=== PATIENT | male | born 1955 ===

== ENCOUNTER 2024-05-14 13:44 | Inpatient (IN) | payer MEDICARE, MEDICAID ==
[~2024-05-14] VITALS: Ht 175.3 cm; Wt 75.7 kg
[2024-05-14 14:00] VITALS: BP 153/83; PULSE 75; RESP 18; TEMP 97.5; O2SAT 100
[2024-05-14] MEDS ORDERED: DEXTROSE 50%-WATER 25 GM/50 ML SYRINGE IVP PRN (15:15)
[2024-05-14] MEDS ORDERED: LEVALBUTEROL TARTRATE HFA 45 MCG/PUFF 15 GM INHALER IH PRN (15:15)
[2024-05-14] MEDS ORDERED: OxyCODONE HCL 5 MG IR TABLET PO PRN (15:30)
[2024-05-14] MEDS ORDERED: *PATIENT'S OWN MED [ENTER DRUG, DOSE, FREQUENCY IN COMMENTS] CLINICAL ONE (15:45)
[2024-05-14] MEDS: GABAPENTIN 300 MG CAPSULE PO SCH (17:03)
[2024-05-14 17:45] LABS: GLUCOMETER DEV NAME(LOC) 2WR.1D; GLUCOSE,POINT OF CARE 109 MG/DL (70-110)
[2024-05-14] MEDS: INFLUENZA VIRUS VACCINE TVS (6MO+) 2024-25/PF 45 MCG/0.5 ML SYRINGE IM. ONE (19:10)
[2024-05-14] MEDS ORDERED: LATANOPROST 0.005% 2.5 ML OPHTHALMIC SOLUTION OU SCH (21:00)
[2024-05-14] MEDS: [UNRECOGNIZED DRUG - OTHER] IH SCH (21:00)
[2024-05-14] MEDS ORDERED: SACUBITRIL/VALSARTAN 49-51 MG TABLET PO SCH (21:00)
[2024-05-14] MEDS ORDERED: TRIAMCINOLONE 0.1% 15 GM OINTMENT TP SCH (21:00)
[2024-05-14] MEDS: FLUTICASONE PROPIONATE IH SCH (21:00)
[2024-05-14 21:10] VITALS: BP 112/59; PULSE 75; RESP 18; TEMP 97.5; O2SAT 100
[2024-05-14] MEDS: MUPIROCIN CALCIUM 2% 15 GM CREAM TP SCH (21:17)
[2024-05-14] MEDS: AMMONIUM LACTATE 12% 225 GM LOTION TP SCH (21:18)
[2024-05-14] MEDS: CHOLECALCIFEROL (VIT D3) 2,000 UNITS [50 MCG] TABLET PO SCH (21:19)
[2024-05-14] MEDS: TRIAMCINOLONE 0.1% 15 GM CREAM TP SCH (21:20)
[2024-05-14] MEDS: MELATONIN 3 MG TABLET PO PRN (21:20)
[2024-05-14] MEDS: SACUBITRIL/VALSARTAN 49-51 MG TABLET PO SCH (21:21)
[2024-05-14] MEDS: ETHYL ALCOHOL 62% ANTISEPTIC NASAL SANITIZER 0.6 ML AMPUL NASAL SCH (22:15)
[2024-05-14] MEDS: INSULIN LISPRO 100 UNITS/ML SQ PRN (22:16)
[2024-05-14 22:57] LABS: APPEARANCE,URINE CLEAR (CLEAR); BILIRUBIN,URINE NEGATIVE (NEGATIVE); COLOR,URINE YELLOW (YELLOW); GLUCOSE, URINE (UA) NEGATIVE (NEGATIVE); KETONES,URINE TRACE mg/dL (NEGATIVE); LEUKOCYTE ESTERASE ,URINE MODERATE (NEGATIVE); NITRATE,URINE NEGATIVE (NEGATIVE); OCCULT BLOOD,URINE TRACE (NEGATIVE); PH,URINE 5.5 (5.0-8.0); PROTEIN,URINE 30-70 mg/dL (NEGATIVE); UROBILINOGEN,URINE <=1.0 mg/dL (<=1.0)
[2024-05-14 23:24] LABS: BACTERIA,URINE Few /HPF (None Seen); HYALINE CASTS, URINE 0-2 /LPF (None Seen); MUCUS,URINE Few LPF (None Seen); SQUAMOUS EPITHELIAL CELL,UR Few /LPF (None Seen)
[2024-05-15 02:06] VITALS: O2SAT 100
[2024-05-15 04:11] LABS: GLUCOMETER DEV NAME(LOC) 2WR.2B; GLUCOSE,POINT OF CARE 175 MG/DL (70-110)
[2024-05-15 06:51] LABS: GLUCOMETER DEV NAME(LOC) 2WR.1D; GLUCOSE,POINT OF CARE 112 MG/DL (70-110)
[2024-05-15 07:51] LABS: BASOPHILS % (AUTO) 0.9 % (0.0-2.0); EOSINOPHILS % (AUTO) 5.4 % (1.0-6.0); HEMOGLOBIN 8.6 g/dL (13.5-17.5); LYMPHOCYTES # (AUTO) 1.4 K/uL (1.0-4.8); LYMPHOCYTES % (AUTO) 25.7 % (22.0-44.0); MEAN CORPUSCULAR HEMOGLOBIN 29.6 pg (26.0-34.0); MEAN CORPUSCULAR HGB CONC 32.9 G/dL (31.0-37.0); MEAN CORPUSCULAR VOLUME 90 fL (80-100); MONOCYTES # (AUTO) 0.4 K/uL (0.1-1.0); MONOCYTES % (AUTO) 7.5 % (2.0-9.0); NEUTROPHILS # (AUTO) 3.2 K/uL (1.8-7.7); NEUTROPHILS % (AUTO) 60.5 % (40.0-70.0); PLATELET COUNT (AUTO) 420 K/uL (150-450); RED BLOOD CELL COUNT(AUTO) 2.89 MIL/uL (4.50-5.90); RED CELL DISTRIBUTION WIDTH 14.3 % (11.5-14.5); WHITE BLOOD COUNT (AUTO) 5.3 K/uL (4.5-11.0)
[2024-05-15 08:10] VITALS: BP 108/61; PULSE 82; RESP 18; TEMP 97.6; O2SAT 100
[2024-05-15 08:11] LABS: ALBUMIN 2.1 g/dL (3.4-5.0); BILIRUBIN,TOTAL 0.2 mg/dL (0.1-1.0); CALCIUM, TOTAL 8.1 mg/dL (8.8-10.5); CREATININE 1.27 mg/dL (0.60-1.30); POTASSIUM 4.7 mmol/L (3.5-5.1); TOTAL PROTEIN, SERUM 5.9 g/dL (6.4-8.2)
[2024-05-15] MEDS: LORATADINE 10 MG TABLET PO SCH (08:31)
[2024-05-15] MEDS: CLOPIDOGREL BISULFATE 75 MG TABLET PO SCH (08:32)
[2024-05-15] MEDS: TAMSULOSIN HCL 0.4 MG CAPSULE PO SCH ×2 (08:32→21:03)
[2024-05-15] MEDS: LATANOPROST 0.005% 2.5 ML OPHTHALMIC SOLUTION OU SCH ×2 (08:35→21:05)
[2024-05-15] MEDS: PrednisoLONE ACETATE 1% 5 ML OPHTHALMIC SUSPENSION OU SCH (08:36)
[2024-05-15] MEDS ORDERED: LORATADINE 10 MG TABLET PO SCH (09:00)
[2024-05-15] MEDS: MULTIVITAMINS WITH MINERALS, THERAPEUTIC TABLET PO SCH (10:33)
[2024-05-15 11:17] VITALS: O2SAT 100
[2024-05-15] MEDS: NITROFURANTOIN MONOHYD/M-CRYST 100 MG CAPSULE [MACROBID] PO SCH (11:29)
[2024-05-15 12:36] LABS: GLUCOMETER DEV NAME(LOC) 2WR.1D; GLUCOSE,POINT OF CARE 127 MG/DL (70-110)
[2024-05-15 18:01] LABS: GLUCOMETER DEV NAME(LOC) 2WR.2B; GLUCOSE,POINT OF CARE 97 MG/DL (70-110)
[2024-05-15 21:00] VITALS: BP 116/64; PULSE 73; RESP 18; TEMP 97.7; O2SAT 100
[2024-05-15 22:31] LABS: GLUCOMETER DEV NAME(LOC) 2WR.2B; GLUCOSE,POINT OF CARE 200 MG/DL (70-110)
[2024-05-16] MEDS: ACETAMINOPHEN 325 MG TABLET PO PRN (02:02)
[2024-05-16 02:48] VITALS: O2SAT 100
[2024-05-16 07:21] LABS: GLUCOMETER DEV NAME(LOC) 2WR.2B; GLUCOSE,POINT OF CARE 97 MG/DL (70-110)
[2024-05-16 08:00] VITALS: BP 116/63; PULSE 72; RESP 18; TEMP 97.4; O2SAT 100
[2024-05-16] MEDS: MUPIROCIN CALCIUM 2% 22 GM OINTMENT NASAL SCH (09:35)
[2024-05-16] MEDS: LORATADINE 10 MG TABLET PO SCH (09:37)
[2024-05-16] MEDS: ENOXAPARIN SODIUM 40 MG/0.4 ML PF SYRINGE SQ SCH (09:39)
[2024-05-16 13:20] LABS: GLUCOMETER DEV NAME(LOC) 2WR.2B; GLUCOSE,POINT OF CARE 122 MG/DL (70-110)
[2024-05-16 18:26] LABS: GLUCOMETER DEV NAME(LOC) 2WR.2B; GLUCOSE,POINT OF CARE 171 MG/DL (70-110)
[2024-05-16 20:00] VITALS: BP 118/59; PULSE 82; RESP 18; TEMP 97.5; O2SAT 100
[2024-05-17 00:01] LABS: GLUCOMETER DEV NAME(LOC) 2WR.2B; GLUCOSE,POINT OF CARE 216 MG/DL (70-110)
[2024-05-17 04:06] VITALS: TEMP 97.6
[2024-05-17] MEDS: LEVALBUTEROL TARTRATE HFA 45 MCG/PUFF 15 GM INHALER IH PRN (04:06)
[2024-05-17 06:57] LABS: BASOPHILS % (AUTO) 0.7 % (0.0-2.0); EOSINOPHILS % (AUTO) 3.3 % (1.0-6.0); HEMATOCRIT 26.3 % (41-53); HEMOGLOBIN 8.7 g/dL (13.5-17.5); LYMPHOCYTES # (AUTO) 1.3 K/uL (1.0-4.8); LYMPHOCYTES % (AUTO) 27.7 % (22.0-44.0); MEAN CORPUSCULAR HEMOGLOBIN 29.5 pg (26.0-34.0); MEAN CORPUSCULAR VOLUME 89 fL (80-100); MONOCYTES # (AUTO) 0.4 K/uL (0.1-1.0); MONOCYTES % (AUTO) 8.3 % (2.0-9.0); NEUTROPHILS # (AUTO) 2.9 K/uL (1.8-7.7); PLATELET COUNT (AUTO) 449 K/uL (150-450); RED BLOOD CELL COUNT(AUTO) 2.95 MIL/uL (4.50-5.90); RED CELL DISTRIBUTION WIDTH 14.3 % (11.5-14.5); WHITE BLOOD COUNT (AUTO) 4.8 K/uL (4.5-11.0)
[2024-05-17 07:05] LABS: GLUCOMETER DEV NAME(LOC) 2WR.1D; GLUCOSE,POINT OF CARE 175 MG/DL (70-110)
[2024-05-17 07:13] LABS: ALBUMIN 2.3 g/dL (3.4-5.0); BILIRUBIN,TOTAL 0.2 mg/dL (0.1-1.0); CALCIUM, TOTAL 8.4 mg/dL (8.8-10.5); CREATININE 1.48 mg/dL (0.60-1.30); POTASSIUM 4.8 mmol/L (3.5-5.1); TOTAL PROTEIN, SERUM 6.2 g/dL (6.4-8.2)
[2024-05-17 08:00] VITALS: BP 111/58; PULSE 71; RESP 18; TEMP 98; O2SAT 100
[2024-05-17] MEDS: TRULICITY 1.5 MG/0.5 ML SQ SCH (08:33)
[2024-05-17] MEDS: TRIAMCINOLONE 0.1% 15 GM OINTMENT TP SCH (08:34)
[2024-05-17] MEDS ORDERED: TRIAMCINOLONE 0.1% 15 GM CREAM TP SCH (09:00)
[2024-05-17 13:16] LABS: GLUCOMETER DEV NAME(LOC) 2WR.2B; GLUCOSE,POINT OF CARE 94 MG/DL (70-110)
[2024-05-17 17:56] LABS: GLUCOMETER DEV NAME(LOC) 2WR.1D; GLUCOSE,POINT OF CARE 106 MG/DL (70-110)
[2024-05-17 20:02] VITALS: BP 126/64; PULSE 85; RESP 18; TEMP 98; O2SAT 97
[2024-05-17 21:57] VITALS: O2SAT 97
[2024-05-17 22:06] LABS: GLUCOMETER DEV NAME(LOC) 2WR.1D; GLUCOSE,POINT OF CARE 216 MG/DL (70-110)
[2024-05-17 22:08] LABS: GLUCOMETER DEV NAME(LOC) 2WR.1D; GLUCOSE,POINT OF CARE 216 MG/DL (70-110)
[2024-05-18 07:21] LABS: GLUCOMETER DEV NAME(LOC) 2WR.1D; GLUCOSE,POINT OF CARE 112 MG/DL (70-110)
[2024-05-18 08:00] VITALS: BP 106/56; PULSE 73; RESP 18; TEMP 98.1; O2SAT 100
[2024-05-18 12:46] LABS: GLUCOMETER DEV NAME(LOC) 2WR.2B; GLUCOSE,POINT OF CARE 130 MG/DL (70-110)
[2024-05-18] MEDS ORDERED: HEPARIN SODIUM,PORCINE 5,000 UNITS/ML VIAL SQ SCH (16:00)
[2024-05-18 18:01] LABS: GLUCOMETER DEV NAME(LOC) 2WR.1D; GLUCOSE,POINT OF CARE 170 MG/DL (70-110)
[2024-05-18 20:10] VITALS: BP 140/78; PULSE 75; RESP 18; TEMP 98.2; O2SAT 100
[2024-05-18] MEDS: SENNOSIDES 8.6 MG TABLET PO SCH (21:39)
[2024-05-18] MEDS: DOCUSATE SODIUM 250 MG CAPSULE PO SCH (21:39)
[2024-05-18 22:00] VITALS: O2SAT 100
[2024-05-18] MEDS: HEPARIN SODIUM,PORCINE 5,000 UNITS/ML VIAL SQ SCH (23:14)
[2024-05-19 00:51] LABS: GLUCOMETER DEV NAME(LOC) 2WR.2B; GLUCOSE,POINT OF CARE 170 MG/DL (70-110)
[2024-05-19 07:10] LABS: GLUCOMETER DEV NAME(LOC) 2WR.1D; GLUCOSE,POINT OF CARE 160 MG/DL (70-110)
[2024-05-19 08:00] VITALS: BP 122/61; PULSE 74; RESP 18; TEMP 98.2; O2SAT 100
[2024-05-19 13:31] LABS: GLUCOMETER DEV NAME(LOC) 2WR.2B; GLUCOSE,POINT OF CARE 141 MG/DL (70-110)
[2024-05-19 18:41] LABS: GLUCOMETER DEV NAME(LOC) 2WR.1D; GLUCOSE,POINT OF CARE 147 MG/DL (70-110)
[2024-05-19 19:43] VITALS: BP 124/65; PULSE 90; RESP 18; TEMP 98; O2SAT 97
[2024-05-19 20:00] VITALS: BP 147/77; PULSE 82; RESP 18; TEMP 97.4; O2SAT 100
[2024-05-19 21:25] LABS: GLUCOMETER DEV NAME(LOC) 2WR.1D; GLUCOSE,POINT OF CARE 145 MG/DL (70-110)
[2024-05-20 07:01] LABS: GLUCOMETER DEV NAME(LOC) 2WR.2B; GLUCOSE,POINT OF CARE 176 MG/DL (70-110)
[2024-05-20 08:00] VITALS: BP 131/66; PULSE 79; RESP 18; TEMP 97.9; O2SAT 100
[2024-05-20 12:05] LABS: GLUCOMETER DEV NAME(LOC) 2WR.1D; GLUCOSE,POINT OF CARE 247 MG/DL (70-110)
[2024-05-20 16:41] LABS: GLUCOMETER DEV NAME(LOC) 2WR.2B; GLUCOSE,POINT OF CARE 196 MG/DL (70-110)
[2024-05-20 20:00] VITALS: BP 119/64; PULSE 89; RESP 18; TEMP 97.9; O2SAT 99
[2024-05-20 23:56] VITALS: O2SAT 99
[2024-05-21 02:30] LABS: GLUCOMETER DEV NAME(LOC) 2WR.1D; GLUCOSE,POINT OF CARE 192 MG/DL (70-110)
[2024-05-21 05:06] VITALS: BP 106/60; PULSE 86; RESP 18; O2SAT 98
[2024-05-21 08:00] VITALS: BP 112/62; PULSE 81; RESP 18; TEMP 98.2; O2SAT 100
[2024-05-21] MEDS: AQUAPHOR OINTMENT 50 GM TUBE TP SCH (09:05)
[2024-05-21 10:26] LABS: GLUCOMETER DEV NAME(LOC) 2WR.1D; GLUCOSE,POINT OF CARE 186 MG/DL (70-110)
[2024-05-21 10:26] LABS: GLUCOMETER DEV NAME(LOC) 2WR.1D; GLUCOSE,POINT OF CARE 229 MG/DL (70-110)
[2024-05-21 14:21] LABS: GLUCOMETER DEV NAME(LOC) 2WR.1D; GLUCOSE,POINT OF CARE 180 MG/DL (70-110)
[2024-05-21 17:41] LABS: GLUCOMETER DEV NAME(LOC) 2WR.1D; GLUCOSE,POINT OF CARE 131 MG/DL (70-110)
[2024-05-21 20:00] VITALS: BP 137/65; PULSE 84; RESP 18; TEMP 97.7; O2SAT 100
[2024-05-21 23:16] LABS: GLUCOMETER DEV NAME(LOC) 2WR.1D; GLUCOSE,POINT OF CARE 309 MG/DL (70-110)
[2024-05-22 06:56] LABS: GLUCOMETER DEV NAME(LOC) 2WR.2B; GLUCOSE,POINT OF CARE 223 MG/DL (70-110)
[2024-05-22 08:00] VITALS: BP 134/67; PULSE 82; RESP 19; TEMP 99.3; O2SAT 98
[2024-05-22 11:21] VITALS: BP 132/75; PULSE 91; RESP 18; TEMP 98.8; O2SAT 100
[2024-05-22 11:46] LABS: GLUCOMETER DEV NAME(LOC) 2WR.2B; GLUCOSE,POINT OF CARE 137 MG/DL (70-110)
[2024-05-22 17:10] LABS: GLUCOMETER DEV NAME(LOC) 2WR.1D; GLUCOSE,POINT OF CARE 131 MG/DL (70-110)
[2024-05-22 18:12] LABS: APPEARANCE,URINE CLEAR (CLEAR); BILIRUBIN,URINE NEGATIVE (NEGATIVE); COLOR,URINE LIGHT YELLOW (YELLOW); GLUCOSE, URINE (UA) NEGATIVE (NEGATIVE); KETONES,URINE NEGATIVE (NEGATIVE); LEUKOCYTE ESTERASE ,URINE LARGE (NEGATIVE); NITRATE,URINE POSITIVE (NEGATIVE); OCCULT BLOOD,URINE SMALL (NEGATIVE); PH,URINE 6.5 (5.0-8.0); PROTEIN,URINE TRACE mg/dL (NEGATIVE); SPECIFIC GRAVITIY, URINE 1.013 (1.003-1.030); UROBILINOGEN,URINE <=1.0 mg/dL (<=1.0)
[2024-05-22 19:00] LABS: BACTERIA,URINE Rare /HPF (None Seen); WBC,URINE 26-50 /HPF (0-5)
[2024-05-22 20:30] VITALS: BP 139/61; PULSE 97; RESP 18; TEMP 98.5; O2SAT 100
[2024-05-22 21:06] VITALS: O2SAT 100
[2024-05-23 02:16] LABS: GLUCOMETER DEV NAME(LOC) 2WR.1D; GLUCOSE,POINT OF CARE 110 MG/DL (70-110)
[2024-05-23 07:26] LABS: GLUCOMETER DEV NAME(LOC) 2WR.2B; GLUCOSE,POINT OF CARE 108 MG/DL (70-110)
[2024-05-23 07:53] LABS: BASOPHILS % (AUTO) 0.4 % (0.0-2.0); EOSINOPHILS % (AUTO) 0 % (1.0-6.0); HEMATOCRIT 26.1 % (41-53); HEMOGLOBIN 8.5 g/dL (13.5-17.5); LYMPHOCYTES # (AUTO) 1.5 K/uL (1.0-4.8); MEAN CORPUSCULAR HEMOGLOBIN 28.8 pg (26.0-34.0); MEAN CORPUSCULAR HGB CONC 32.4 G/dL (31.0-37.0); MEAN CORPUSCULAR VOLUME 89 fL (80-100); MONOCYTES # (AUTO) 1.7 K/uL (0.1-1.0); MONOCYTES % (AUTO) 7.6 % (2.0-9.0); NEUTROPHILS # (AUTO) 18.6 K/uL (1.8-7.7); PLATELET COUNT (AUTO) 364 K/uL (150-450); RED BLOOD CELL COUNT(AUTO) 2.94 MIL/uL (4.50-5.90); RED CELL DISTRIBUTION WIDTH 14.5 % (11.5-14.5); WHITE BLOOD COUNT (AUTO) 21.9 K/uL (4.5-11.0)
[2024-05-23] MEDS: SitaGLIPtin PHOSPHATE 25 MG TABLET PO SCH (07:59)
[2024-05-23 08:05] VITALS: BP 116/64; PULSE 85; RESP 18; TEMP 98.4; O2SAT 98
[2024-05-23 08:19] LABS: ALBUMIN 2.1 g/dL (3.4-5.0); BILIRUBIN,TOTAL 0.4 mg/dL (0.1-1.0); CALCIUM, TOTAL 8.3 mg/dL (8.8-10.5); CREATININE 1.61 mg/dL (0.60-1.30); POTASSIUM 4.7 mmol/L (3.5-5.1)
[2024-05-23 10:49] VITALS: O2SAT 98
[2024-05-23 11:51] LABS: GLUCOMETER DEV NAME(LOC) 2WR.2B; GLUCOSE,POINT OF CARE 240 MG/DL (70-110)
[2024-05-23] MEDS: SODIUM CHLORIDE 0.9% 1,000 ML IV SCH (12:23)
[2024-05-23] MEDS: CefTRIAXone 1 GM/DEXTROSE 50 ML IV SCH (12:27)
[2024-05-23 12:44] LABS: LACTIC ACID 0.9 mmol/L (0.4-2.0)
[2024-05-23 13:21] LABS: GLUCOMETER DEV NAME(LOC) 2WR.2B; GLUCOSE,POINT OF CARE 147 MG/DL (70-110)
[2024-05-23 13:55] VITALS: BP 127/68; PULSE 81; RESP 19; TEMP 98.2; O2SAT 100
[2024-05-23 17:10] LABS: GLUCOMETER DEV NAME(LOC) 2WR.1D; GLUCOSE,POINT OF CARE 86 MG/DL (70-110)
[2024-05-23 20:00] VITALS: BP 113/65; PULSE 85; RESP 18; TEMP 99.9; O2SAT 99
[2024-05-23 21:55] LABS: GLUCOMETER DEV NAME(LOC) 2WR.1D; GLUCOSE,POINT OF CARE 167 MG/DL (70-110)
[2024-05-24] MEDS: CefTRIAXone 1 GM/DEXTROSE 50 ML IV SCH (02:03)
[2024-05-24 06:05] VITALS: TEMP 99.2
[2024-05-24 06:06] VITALS: TEMP 99.2
[2024-05-24 06:45] LABS: GLUCOMETER DEV NAME(LOC) 2WR.2B; GLUCOSE,POINT OF CARE 98 MG/DL (70-110)
[2024-05-24 07:08] LABS: BASOPHILS % (AUTO) 0.2 % (0.0-2.0); EOSINOPHILS % (AUTO) 0.1 % (1.0-6.0); HEMATOCRIT 24.8 % (41-53); LYMPHOCYTES # (AUTO) 1.6 K/uL (1.0-4.8); LYMPHOCYTES % (AUTO) 8.2 % (22.0-44.0); MEAN CORPUSCULAR HEMOGLOBIN 28.6 pg (26.0-34.0); MEAN CORPUSCULAR HGB CONC 32.3 G/dL (31.0-37.0); MEAN CORPUSCULAR VOLUME 89 fL (80-100); MONOCYTES # (AUTO) 1.5 K/uL (0.1-1.0); MONOCYTES % (AUTO) 7.6 % (2.0-9.0); NEUTROPHILS # (AUTO) 16.4 K/uL (1.8-7.7); NEUTROPHILS % (AUTO) 83.9 % (40.0-70.0); PLATELET COUNT (AUTO) 322 K/uL (150-450); RED BLOOD CELL COUNT(AUTO) 2.81 MIL/uL (4.50-5.90); RED CELL DISTRIBUTION WIDTH 14.5 % (11.5-14.5); WHITE BLOOD COUNT (AUTO) 19.6 K/uL (4.5-11.0)
[2024-05-24 07:27] LABS: CALCIUM, TOTAL 8.1 mg/dL (8.8-10.5); CREATININE 1.58 mg/dL (0.60-1.30); POTASSIUM 4.1 mmol/L (3.5-5.1)
[2024-05-24 08:20] VITALS: BP 97/52; PULSE 73; RESP 16; TEMP 99.2; O2SAT 100
[2024-05-24] MEDS: SODIUM CHLORIDE 0.9% 1,000 ML IV ONE (10:15)
[2024-05-24] MEDS: *CLINICAL-LEVOFLOXACIN ORAL DOSING CLINICAL ONE (13:26)
[2024-05-24 14:11] LABS: GLUCOMETER DEV NAME(LOC) 2WR.1D; GLUCOSE,POINT OF CARE 203 MG/DL (70-110)
[2024-05-24 14:17] VITALS: O2SAT 100
[2024-05-24] MEDS: LEVOFLOXACIN 750 MG/D5% WATER 150 ML IV SCH (15:10)
[2024-05-24 17:41] LABS: GLUCOMETER DEV NAME(LOC) 2WR.2B; GLUCOSE,POINT OF CARE 139 MG/DL (70-110)
[2024-05-24 20:30] VITALS: O2SAT 98
[2024-05-24 20:32] VITALS: BP 121/67; PULSE 84; RESP 18; TEMP 97.9; O2SAT 98
[2024-05-25 00:06] LABS: GLUCOMETER DEV NAME(LOC) 2WR.2B; GLUCOSE,POINT OF CARE 214 MG/DL (70-110)
[2024-05-25 06:50] LABS: GLUCOMETER DEV NAME(LOC) 2WR.1D; GLUCOSE,POINT OF CARE 155 MG/DL (70-110)
[2024-05-25 08:00] VITALS: BP 109/56; PULSE 74; RESP 18; TEMP 98.4; O2SAT 99
[2024-05-25] MEDS: 0.9% SODIUM CHLORIDE 10 ML SYRINGE IVP SCH (08:10)
[2024-05-25 08:21] LABS: BASOPHILS % (AUTO) 0.4 % (0.0-2.0); EOSINOPHILS % (AUTO) 1.3 % (1.0-6.0); HEMATOCRIT 26.9 % (41-53); HEMOGLOBIN 8.8 g/dL (13.5-17.5); LYMPHOCYTES % (AUTO) 7.7 % (22.0-44.0); MEAN CORPUSCULAR HEMOGLOBIN 28.7 pg (26.0-34.0); MEAN CORPUSCULAR HGB CONC 32.6 G/dL (31.0-37.0); MEAN CORPUSCULAR VOLUME 88 fL (80-100); MONOCYTES # (AUTO) 0.8 K/uL (0.1-1.0); MONOCYTES % (AUTO) 6.6 % (2.0-9.0); NEUTROPHILS # (AUTO) 10.5 K/uL (1.8-7.7); PLATELET COUNT (AUTO) 341 K/uL (150-450); RED BLOOD CELL COUNT(AUTO) 3.05 MIL/uL (4.50-5.90); RED CELL DISTRIBUTION WIDTH 14.7 % (11.5-14.5); WHITE BLOOD COUNT (AUTO) 12.5 K/uL (4.5-11.0)
[2024-05-25 08:35] LABS: CALCIUM, TOTAL 8.1 mg/dL (8.8-10.5); CREATININE 2.04 mg/dL (0.60-1.30); POTASSIUM 4.3 mmol/L (3.5-5.1)
[2024-05-25] MEDS: SODIUM CHLORIDE 0.9% 1,000 ML IV SCH (10:45)
[2024-05-25 12:11] LABS: GLUCOMETER DEV NAME(LOC) 2WR.2B; GLUCOSE,POINT OF CARE 175 MG/DL (70-110)
[2024-05-25 17:31] LABS: GLUCOMETER DEV NAME(LOC) 2WR.1D; GLUCOSE,POINT OF CARE 100 MG/DL (70-110)
[2024-05-25 20:00] VITALS: BP 128/73; PULSE 92; RESP 20; TEMP 98.2; O2SAT 100
[2024-05-25 21:55] LABS: GLUCOMETER DEV NAME(LOC) 2WR.2B; GLUCOSE,POINT OF CARE 262 MG/DL (70-110)
[2024-05-26 06:41] LABS: % IRON SATURATION 18.8 % (30-44)
[2024-05-26 06:42] LABS: CREATININE 1.7 mg/dL (0.60-1.30); POTASSIUM 4.5 mmol/L (3.5-5.1)
[2024-05-26 07:05] LABS: GLUCOMETER DEV NAME(LOC) 2WR.1D; GLUCOSE,POINT OF CARE 154 MG/DL (70-110)
[2024-05-26 08:00] VITALS: BP 114/60; PULSE 73; RESP 18; TEMP 98.5; O2SAT 100
[2024-05-26] MEDS ORDERED: LACTULOSE 20 GM/30 ML SOLUTION UDCUP PO PRN (09:45)
[2024-05-26 10:21] VITALS: O2SAT 100
[2024-05-26 12:56] LABS: GLUCOMETER DEV NAME(LOC) 2WR.2B; GLUCOSE,POINT OF CARE 137 MG/DL (70-110)
[2024-05-26] MEDS: GABAPENTIN 300 MG CAPSULE PO SCH (16:21)
[2024-05-26 18:00] LABS: GLUCOMETER DEV NAME(LOC) 2WR.2B; GLUCOSE,POINT OF CARE 162 MG/DL (70-110)
[2024-05-26 21:00] VITALS: BP 134/80; PULSE 82; RESP 18; TEMP 97.7; O2SAT 97
[2024-05-26 22:16] LABS: GLUCOMETER DEV NAME(LOC) 2WR.1D; GLUCOSE,POINT OF CARE 158 MG/DL (70-110)
[2024-05-27 00:05] VITALS: O2SAT 97
[2024-05-27 06:36] LABS: GLUCOMETER DEV NAME(LOC) 2WR.2B; GLUCOSE,POINT OF CARE 161 MG/DL (70-110)
[2024-05-27 07:45] LABS: CALCIUM, TOTAL 8.2 mg/dL (8.8-10.5); CREATININE 1.65 mg/dL (0.60-1.30); POTASSIUM 4.8 mmol/L (3.5-5.1)
[2024-05-27 07:48] LABS: MAGNESIUM 2.2 mg/dL (1.80-2.40); PHOSPHORUS 2.4 mg/dL (2.5-4.9)
[2024-05-27 08:05] VITALS: BP 127/68; PULSE 74; RESP 18; TEMP 98.2; O2SAT 98
[2024-05-27 10:25] VITALS: O2SAT 98
[2024-05-27] MEDS: EPOETIN ALFA 10,000 UNITS/ML VIAL SQ ONE (12:04)
[2024-05-27 12:26] LABS: GLUCOMETER DEV NAME(LOC) 2WR.2B; GLUCOSE,POINT OF CARE 146 MG/DL (70-110)
[2024-05-27 12:30] VITALS: BP 132/64; PULSE 80; RESP 18; TEMP 98.6; O2SAT 99
[2024-05-27] MEDS: SODIUM CHLORIDE 0.9% 1,000 ML IV SCH (13:19)
[2024-05-27 18:06] LABS: GLUCOMETER DEV NAME(LOC) 2WR.1D; GLUCOSE,POINT OF CARE 172 MG/DL (70-110)
[2024-05-27 20:30] VITALS: BP 132/75; PULSE 82; RESP 18; TEMP 98.1; O2SAT 100
[2024-05-27 22:05] LABS: GLUCOMETER DEV NAME(LOC) 2WR.2B; GLUCOSE,POINT OF CARE 126 MG/DL (70-110)
[2024-05-28 02:14] VITALS: O2SAT 100
[2024-05-28 07:10] LABS: GLUCOMETER DEV NAME(LOC) 2WR.1D; GLUCOSE,POINT OF CARE 149 MG/DL (70-110)
[2024-05-28] MEDS ORDERED: SACU1TAB7 PO (07:54)
[2024-05-28] MEDS ORDERED: DOCU-412 PO (07:54)
[2024-05-28] MEDS ORDERED: FLUT10.67 IH (07:54)
[2024-05-28] MEDS ORDERED: CLOP75TA60 PO (07:54)
[2024-05-28] MEDS ORDERED: GABA-1181 PO (07:54)
[2024-05-28] MEDS ORDERED: SENN-376 PO (07:54)
[2024-05-28] MEDS ORDERED: LORA10TA7 PO (07:54)
[2024-05-28] MEDS ORDERED: SITA25 PO (07:54)
[2024-05-28] MEDS ORDERED: MULT-1303 PO (07:54)
[2024-05-28] MEDS ORDERED: DULA1.5P SQ (07:54)
[2024-05-28] MEDS ORDERED: TAMS0.4C94 PO (07:54)
[2024-05-28] MEDS ORDERED: PREDAOS OU (07:54)
[2024-05-28] MEDS ORDERED: CHOL25TA4 PO (07:54)
[2024-05-28] MEDS ORDERED: EVOL140P3 SQ (07:54)
[2024-05-28] MEDS ORDERED: XALA2.5OS OU (07:54)
[2024-05-28] MEDS ORDERED: INSU100V SQ (07:54)
[2024-05-28 08:00] VITALS: BP 132/66; PULSE 77; RESP 18; TEMP 98.1; O2SAT 98
[2024-05-28] MEDS: EVOLOCUMAB 140 MG/ML SQ SCH (08:39)
[2024-05-28 15:26] LABS: GLUCOMETER DEV NAME(LOC) 2WR.1D; GLUCOSE,POINT OF CARE 122 MG/DL (70-110)
[2024-05-28 18:21] LABS: GLUCOMETER DEV NAME(LOC) 2WR.1D; GLUCOSE,POINT OF CARE 222 MG/DL (70-110)
[2024-05-28 20:00] VITALS: BP 145/78; PULSE 85; RESP 20; TEMP 98; O2SAT 100
[2024-05-28 21:36] LABS: GLUCOMETER DEV NAME(LOC) 2WR.2B; GLUCOSE,POINT OF CARE 153 MG/DL (70-110)
[2024-05-29 06:25] LABS: BASOPHILS % (AUTO) 0.7 % (0.0-2.0); EOSINOPHILS % (AUTO) 3.2 % (1.0-6.0); HEMATOCRIT 25.8 % (41-53); HEMOGLOBIN 8.4 g/dL (13.5-17.5); LYMPHOCYTES # (AUTO) 1.9 K/uL (1.0-4.8); LYMPHOCYTES % (AUTO) 24.6 % (22.0-44.0); MEAN CORPUSCULAR HEMOGLOBIN 28.6 pg (26.0-34.0); MEAN CORPUSCULAR HGB CONC 32.6 G/dL (31.0-37.0); MEAN CORPUSCULAR VOLUME 88 fL (80-100); MONOCYTES # (AUTO) 0.7 K/uL (0.1-1.0); MONOCYTES % (AUTO) 8.7 % (2.0-9.0); NEUTROPHILS # (AUTO) 4.8 K/uL (1.8-7.7); NEUTROPHILS % (AUTO) 62.8 % (40.0-70.0); PLATELET COUNT (AUTO) 344 K/uL (150-450); RED BLOOD CELL COUNT(AUTO) 2.95 MIL/uL (4.50-5.90); RED CELL DISTRIBUTION WIDTH 14.7 % (11.5-14.5); WHITE BLOOD COUNT (AUTO) 7.7 K/uL (4.5-11.0)
[2024-05-29 07:11] LABS: GLUCOMETER DEV NAME(LOC) 2WR.1D; GLUCOSE,POINT OF CARE 168 MG/DL (70-110)
[2024-05-29 07:37] LABS: CALCIUM, TOTAL 8.1 mg/dL (8.8-10.5); CREATININE 1.37 mg/dL (0.60-1.30); PHOSPHORUS 2.6 mg/dL (2.5-4.9); POTASSIUM 4.8 mmol/L (3.5-5.1)
[2024-05-29 08:10] VITALS: BP 145/78; PULSE 85; RESP 18; TEMP 97.8; O2SAT 98
[2024-05-29 09:31] VITALS: O2SAT 98
[2024-05-29 12:20] LABS: GLUCOMETER DEV NAME(LOC) 2WR.1D; GLUCOSE,POINT OF CARE 170 MG/DL (70-110)
[2024-05-29 17:16] LABS: GLUCOMETER DEV NAME(LOC) 2WR.1D; GLUCOSE,POINT OF CARE 140 MG/DL (70-110)
[2024-05-29 20:30] VITALS: BP 148/81; PULSE 91; RESP 19; TEMP 98.2; O2SAT 99
[2024-05-29 22:26] LABS: GLUCOMETER DEV NAME(LOC) 2WR.1D; GLUCOSE,POINT OF CARE 167 MG/DL (70-110)
[2024-05-30 00:34] VITALS: O2SAT 99
[2024-05-30 06:35] LABS: GLUCOMETER DEV NAME(LOC) 2WR.1D; GLUCOSE,POINT OF CARE 179 MG/DL (70-110)
[2024-05-30 08:20] VITALS: BP 131/61; PULSE 75; RESP 18; TEMP 98.4; O2SAT 100
[2024-05-30 10:40] VITALS: O2SAT 100
[2024-05-30 12:30] LABS: GLUCOMETER DEV NAME(LOC) 2WR.1D; GLUCOSE,POINT OF CARE 159 MG/DL (70-110)
[2024-05-30 17:30] LABS: GLUCOMETER DEV NAME(LOC) 2WR.2B; GLUCOSE,POINT OF CARE 128 MG/DL (70-110)
[2024-05-30 20:00] VITALS: BP 148/83; PULSE 86; RESP 18; TEMP 98.1; O2SAT 98
[2024-05-30 21:48] VITALS: O2SAT 98
[2024-05-31 00:41] LABS: GLUCOMETER DEV NAME(LOC) 2WR.2B; GLUCOSE,POINT OF CARE 132 MG/DL (70-110)
[2024-05-31 06:26] LABS: GLUCOMETER DEV NAME(LOC) 2WR.2B; GLUCOSE,POINT OF CARE 193 MG/DL (70-110)
[2024-05-31 08:00] VITALS: BP 121/65; PULSE 75; RESP 18; TEMP 98.2; O2SAT 99
[2024-05-31 13:15] LABS: GLUCOMETER DEV NAME(LOC) 2WR.2B; GLUCOSE,POINT OF CARE 96 MG/DL (70-110)
[2024-05-31 18:21] LABS: GLUCOMETER DEV NAME(LOC) 2WR.2B; GLUCOSE,POINT OF CARE 141 MG/DL (70-110)
[2024-05-31 20:05] VITALS: BP 130/77; PULSE 85; RESP 18; TEMP 98.2; O2SAT 96
[2024-05-31 21:20] LABS: GLUCOMETER DEV NAME(LOC) 2WR.1D; GLUCOSE,POINT OF CARE 224 MG/DL (70-110)
[2024-05-31 22:49] LABS: APPEARANCE,URINE CLEAR (CLEAR); BILIRUBIN,URINE NEGATIVE (NEGATIVE); COLOR,URINE LIGHT YELLOW (YELLOW); GLUCOSE, URINE (UA) 70-100 mg/dL (NEGATIVE); KETONES,URINE NEGATIVE (NEGATIVE); LEUKOCYTE ESTERASE ,URINE NEGATIVE (NEGATIVE); NITRATE,URINE NEGATIVE (NEGATIVE); OCCULT BLOOD,URINE NEGATIVE (NEGATIVE); PH,URINE 6.5 (5.0-8.0); PROTEIN,URINE NEGATIVE (NEGATIVE); SPECIFIC GRAVITIY, URINE 1.013 (1.003-1.030); UROBILINOGEN,URINE <=1.0 mg/dL (<=1.0)
[2024-05-31 23:08] LABS: BACTERIA,URINE Rare /HPF (None Seen); RBC,URINE 0-2 /HPF (0-2); WBC,URINE 0-2 /HPF (0-5)
[2024-06-01 01:06] VITALS: O2SAT 96
[2024-06-01 07:10] LABS: GLUCOMETER DEV NAME(LOC) 2WR.2B; GLUCOSE,POINT OF CARE 141 MG/DL (70-110)
[2024-06-01 08:05] VITALS: BP 137/64; PULSE 74; RESP 18; TEMP 98.4; O2SAT 98
[2024-06-01] MEDS ORDERED: XALA2.5OS OU (10:11)
[2024-06-01] MEDS ORDERED: SENN-374 PO (10:11)
[2024-06-01] MEDS ORDERED: CHOL200059 PO (10:11)
[2024-06-01] MEDS ORDERED: GABA-1181 PO (10:11)
[2024-06-01] MEDS ORDERED: INSU100V SQ (10:11)
[2024-06-01] MEDS ORDERED: CLOP75TA60 PO (10:11)
[2024-06-01] MEDS ORDERED: TRI115O TP (10:11)
[2024-06-01] MEDS ORDERED: MIRA25TA PO (10:11)
[2024-06-01] MEDS ORDERED: FLUT10.67 IH (10:11)
[2024-06-01] MEDS ORDERED: PREDAOS OU (10:11)
[2024-06-01] MEDS ORDERED: TRIA15CR49 TP (10:11)
[2024-06-01] MEDS ORDERED: MULT-1303 PO (10:11)
[2024-06-01] MEDS ORDERED: DOCU-412 PO (10:11)
[2024-06-01] MEDS ORDERED: TAMS0.4C94 PO (10:11)
[2024-06-01] MEDS ORDERED: FOLI-130 SQ (10:11)
[2024-06-01] MEDS ORDERED: SACU1TAB7 PO (10:11)
[2024-06-01] MEDS ORDERED: SITA25 PO (10:11)
[2024-06-01] MEDS ORDERED: LORA10TA60 PO (10:11)
[2024-06-01 10:23] VITALS: O2SAT 98
== END 2024-06-01 13:10 | disposition home or self-care (01) | DRG 559 ==
LOC: 2WR 14:09
PROVIDERS: ADMIT Physical Medicine & Rehabilitation; ATTEND Physical Medicine & Rehabilitation
DX: Z47.89 Encounter for other orthopedic aftercare (principal); N17.0 Acute kidney failure with tubular necrosis; N39.0 Urinary tract infection, site not specified; G95.9 Disease of spinal cord, unspecified; I13.0 Hypertensive heart and chronic kidney disease with heart failure and stage 1 through stage 4 chronic kidney disease, or unspecified chronic kidney disease; I50.30 Unspecified diastolic (congestive) heart failure; M24.511 Contracture, right shoulder; M24.541 Contracture, right hand; Z74.09 Other reduced mobility; E78.5 Hyperlipidemia, unspecified; E11.65 Type 2 diabetes mellitus with hyperglycemia; E11.40 Type 2 diabetes mellitus with diabetic neuropathy, unspecified; E11.22 Type 2 diabetes mellitus with diabetic chronic kidney disease; D46.9 Myelodysplastic syndrome, unspecified; I27.20 Pulmonary hypertension, unspecified; G24.9 Dystonia, unspecified; R62.7 Adult failure to thrive; M62.84 Sarcopenia; E88.09 Other disorders of plasma-protein metabolism, not elsewhere classified; B96.5 Pseudomonas (aeruginosa) (mallei) (pseudomallei) as the cause of diseases classified elsewhere; D63.1 Anemia in chronic kidney disease; E03.9 Hypothyroidism, unspecified; R31.29 Other microscopic hematuria; S90.32XA Contusion of left foot, initial encounter; S90.31XA Contusion of right foot, initial encounter; L89.899 Pressure ulcer of other site, unspecified stage; X58.XXXA Exposure to other specified factors, initial encounter; K59.00 Constipation, unspecified; N18.2 Chronic kidney disease, stage 2 (mild); N40.1 Benign prostatic hyperplasia with lower urinary tract symptoms; R32 Unspecified urinary incontinence; R33.8 Other retention of urine; Z88.8 Allergy status to other drugs, medicaments and biological substances; Z22.322 Carrier or suspected carrier of Methicillin resistant Staphylococcus aureus; Z74.01 Bed confinement status; Y93.89 Activity, other specified; Y92.89 Other specified places as the place of occurrence of the external cause; Y99.8 Other external cause status; Z68.24 Body mass index [BMI] 24.0-24.9, adult; R33.9 Retention of urine, unspecified
CPT/HCPCS: 76770; 80048; 80053; 81001; 82570; 82728; 82962; 83036; 83540; 83550; 83605; 83735; 84100; 84145; 84300; 84540; 85025; 87040; 87077; 87081; 87086; 87186; 92507; 92523; 93306; 93971; 97110; 97112; 97116; 97140; 97163; 97166; 97530; 97535; 97760; 99366; J0696; J0885; J1644; J1650; J1956; J3535; J7030